=== PATIENT | male | born 1950 | race African-American/Black ===

== ENCOUNTER 2021-06-25 16:28 | Emergency (ER) | payer MEDICARE, OTHER ==
[~2021-06-25] VITALS: Ht 172.7 cm; Wt 71.2 kg
[2021-06-25 17:48] VITALS: BP 141/71
[2021-06-25] MEDS ORDERED: HYDROcodone-ACET 5/325MG TAB PO ONE (18:15)
[2021-06-25] MEDS ORDERED: TETANUS-DIPTH-ACEL PERTUSSIS 0.5ML SYR Tdap IM ONE (18:15)
== END 2021-06-25 19:00 | disposition home or self-care (01) ==
LOC: ER 16:28
DX: S22.32XA Fracture of one rib, left side, initial encounter for closed fracture (principal); S71.112A Laceration without foreign body, left thigh, initial encounter; S61.205A Unspecified open wound of left ring finger without damage to nail, initial encounter; I10 Essential (primary) hypertension; W18.39XA Other fall on same level, initial encounter; Y93.89 Activity, other specified; Y92.89 Other specified places as the place of occurrence of the external cause; Y99.8 Other external cause status
CPT/HCPCS: 12002; 71101; 73562; 90471; 90715